=== PATIENT | female | born 1965 | race Two or more races ===

== ENCOUNTER 2016-08-15 17:57 | Emergency (ER) | payer MEDICAID ==
[~2016-08-15] VITALS: Ht 170.2 cm; Wt 77.1 kg
[2016-08-15] MEDS ORDERED: MECLIZINE HCL 25 MG TAB PO ONE (19:00)
[2016-08-15] MEDS ORDERED: SODIUM CHLORIDE 0.9% 1,000 ML IV ONE (19:00)
[2016-08-15 20:24] LABS: Albumin 3.5 g/dL (3.4-5.0); Anion Gap 10 (5-15); Blood Urea Nitrogen 30 mg/dL (7-18); Calcium 8.1 mg/dL (8.5-10.1); Carbon Dioxide 25 mmol/L (21-32); Chloride 106 mmol/L (98-107); Glucose 106 mg/dL (74-106); Potassium 3.6 mmol/L (3.5-5.1); Sodium 141 mmol/L (136-145)
[2016-08-15 20:27] LABS: GFR African American 70 mL/min; GFR Non-African American 58 mL/min; Magnesium 1.9 mg/dL (1.6-2.6)
[2016-08-15 20:46] LABS: Alkaline Phosphatase 114 U/L (45-117); Aspartate Aminotransferase 22 U/L (15-37); Bilirubin, Total 0.1 mg/dL (0.2-1.0); Total Protein 7.7 g/dL (6.4-8.2)
[2016-08-15 20:55] LABS: Basophils # (auto) 0 uL; Basophils % (auto) 0.5 % (0.0-2.0); Eosinophils # (auto) 0.1 uL; Eosinophils % (auto) 1.3 % (0.0-7.0); Hematocrit 47.7 % (36.0-46.0); Hemoglobin 16.1 g/dL (12.2-16.2); Lymphocytes # (auto) 1.5 uL; Lymphocytes % (auto) 16.6 % (10.0-50.0); Mean Corpuscular Hemoglobin 30.6 pg (28.0-32.0); Mean Corpuscular Hgb Conc. 33.8 g/dL (32.0-36.0); Mean Corpuscular Volume 90.3 fL (80.0-100.0); Mean Platelet Volume 14.2 fL (7.4-10.4); Monocytes # (auto) 0.3 uL; Monocytes % (auto) 3.3 % (0.0-12.0); Neutrophils # (auto) 7.1 uL; Neutrophils % (auto) 78.3 % (37.0-80.0); Platelet Count (auto) 143 10^3/uL (140-450); Red Cell Distribution Width 12.8 % (11.6-16.0); SUSPECT VIEW TRANSMISSION; White Blood Cell 9.1 10^3/uL (4.4-10.8)
[2016-08-15 21:20] VITALS: BP 101/67
[2016-08-15 22:24] LABS: Giant Platelets Few; Platelet Estimate Adequate
== END 2016-08-15 21:29 | disposition home or self-care (01) ==
LOC: ER 18:06
DX: E86.0 Dehydration (principal); R42 Dizziness and giddiness; J06.9 Acute upper respiratory infection, unspecified; E07.9 Disorder of thyroid, unspecified
CPT/HCPCS: 36415; 70450; 71010; 80053; 83735; 84484; 85025; 93005; 96360; 99285; J7030; J8597; 96361

== ENCOUNTER 2017-06-03 20:49 | Emergency (ER) | payer MEDICAID, OTHER ==
[~2017-06-03] VITALS: Ht 170.2 cm; Wt 59.0 kg
[2017-06-04 00:19] VITALS: BP 110/75
[2017-06-04] MEDS ORDERED: BACITRACIN TOP OINT 1 UD PKG TOP ONE (00:30)
[2017-06-04] MEDS ORDERED: LIDOCAINE 1% HCL (LOCAL ANESTH.) INJ 20ML MDV IJ ONE (00:30)
[2017-06-04] MEDS ORDERED: TETANUS-DIPTH-ACEL PERTUSSIS 0.5ML SYRG IM ONE (00:45)
== END 2017-06-04 01:33 | disposition home or self-care (01) ==
LOC: ER 20:49
DX: S91.312A Laceration without foreign body, left foot, initial encounter (principal); S90.32XA Contusion of left foot, initial encounter; E07.89 Other specified disorders of thyroid; W22.8XXA Striking against or struck by other objects, initial encounter; Y93.89 Activity, other specified; Y99.8 Other external cause status; Y92.89 Other specified places as the place of occurrence of the external cause
CPT/HCPCS: 12002; 90471; 90715; 99283; J2001